=== PATIENT | female | born 1960 | race Caucasian/White ===

== ENCOUNTER 2021-02-13 11:42 | Emergency (ER) | payer OTHER, SELFPAY ==
[2021-02-13] VITALS (22 sets, daily range): BP systolic 142–183; BP diastolic 59–73; PULSE 84–97; RESP 14; TEMP 36.6; O2SAT 97–99
--- NOTE | 2021-02-13 11:53 | ED.GENADUL_ITS ---
Discharge Plan Disposition Patient Disposition: [facility] ([facility] Condition: Improving Discharge Details Clinical Impression: Diabetes, Hyperglycemia Primary Care Provider: Megan Day ED Provider: Pedro Keyes Home Meds and New Rx's Prescriptions: Continued lisinopril 10 MG tablet 10 mg PO DAILY RF: 0 BABY ASPIRIN 81 MG TAB.CHEW 81 mg PO DAILY RF: 0 acetaminophen 500 mg Tablet 1,000 mg PO Q8H PRN PRNRF: 0 enoxaparin 40 mg/0.4 mL Syringe 40 mg subcut BID RF: 0 insulin lispro 100 unit/mL Solution 2 - 5 sliding scale dose subcut QID RF: 0 lidocaine [Lidoderm] 5 % Adhesive Patch,Medicated 1 patch transdermal DAILY RF: 0 polyethylene glycol 3350 [Miralax] 17 gram/dose Powder 17 g PO BID PRN PRNRF: 0 senna-docusate sodium Tablet 2 tab PO BID RF: 0 glucagon 1 mg Kit 1 mg RF: 0 atorvastatin 40 mg Tablet 40 mg PO DAILY RF: 0 insulin glargine 100 unit/mL Solution 8 unit SUBCUT RF: 0 citalopram 20 mg Tablet 20 mg PO DAILY RF: 0 haloperidol 0.5 mg Tablet 0.5 mg PO PRN PRNRF: 0 levothyroxine 50 mcg Tablet 50 mcg PO DAILY RF: 0 lorazepam 0.5 mg Tablet 0.5 mg PO PRN PRNRF: 0 morphine 20 mg/5 mL (4 mg/mL) Solution 20 mg PO PRN PRNRF: 0 pantoprazole 40 mg Tablet,Delayed Release (Dr/Ec) 40 mg PO DAILY RF: 0 prochlorperazine 5 mg Suppository 10 mg NM RF: 0 ondansetron 4 mg Tablet,Disintegrating 4 mg PO PRN PRNRF: 0 metoclopramide HCl 10 mg Tablet,Disintegrating 10 mg PO DAILY RF: 0 Discharge Instructions Instructions: Diabetic Hyperglycemia (ED) Additional Instructions: Your evaluation in the ER included laboratory and urinalysis. Continue Carb counting with meals, sliding scale Lispro. Please followup with Endocrinology as was planned [place] [facility] [place] recommend he check her glucoses with each meal for a minimum of 3 times daily. Observe consistent carbohydrate intake. Resume sliding scale coverage of insulin with Humalog/lispro at mealtimes. In the emergency phone you had laboratory testing, received 1 L of normal saline , and a total of 16 units of regular insulin. Medical Decision Making 60-year-old female brought from rehabilitation facility where she is recovering from left tib-fib fracture repair. She was insulin-dependent diabetes, has been noted to have fluctuating glucoses and today hyperglycemic. Was given 10 units of insulin and transferred to the ER. Her diabetic regimen includes 10 units of Lantus daily and lispro sliding scale. She arrives interactive without complaint. Patient given fluid bolus, laboratories obtained. CBC with white count 3.9, hematocrit 25, platelets 377, chemistries note unremarkable electrolytes, BUN 16, creatinine 1.0, glucose 470. Urinalysis with specific gravity 1.02. Glucosuria present. Patient given 1 L fluid, 10 units of regular insulin, and glucose rechecked, still elevated above 300 and patient given additional 6 units of insulin and glucose corrected to approximately 70. 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 She has poor consistency of diet and this may be contributory as well. We will recommend ongoing use of Lantus with sliding scale and 3 times daily glucose checks. She is stable and improved, appropriate for discharge to rehabilitation. HPI General Mode of arrival: EMS . Date/Time Provider Initiated Documentation: 02/13/21 12:01 . Limitations to Documentation: no limitations . Information obtained by: patient and EMS . History of Present Illness 60 year old F presents to the emergency department with the chief complaint of Elevated glucose at rehabilitation facility, Quality is described as constant, Patient reports no radiation. Patient started experiencing this unknown No relieving factors improve symptom(s), No exacerbating factors reported . Patient notes no other symptoms.. Related Data Home Medications Medication Instructions Recorded Confirmed Baby Aspirin 81 mg PO DAILY tab-cap NS 04/22/14 02/13/21 lisinopril 10 mg PO DAILY tab-cap NS 04/22/14 02/13/21 acetaminophen 1,000 mg PO Q8H PRN PRN 02/13/21 02/13/21 atorvastatin 40 mg PO DAILY 02/13/21 02/13/21 citalopram 20 mg PO DAILY 02/13/21 02/13/21 enoxaparin 40 mg SUBCUT BID 02/13/21 02/13/21 glucagon 1 mg 02/13/21 haloperidol 0.5 mg PO PRN PRN 02/13/21 02/13/21 insulin glargine 8 unit SUBCUT 02/13/21 insulin lispro 2 - 5 sliding scale dose SUBCUT QID 02/13/21 02/13/21 levothyroxine 50 mcg PO DAILY 02/13/21 02/13/21 lidocaine [Lidoderm] 1 patch TRANSDERMAL DAILY 02/13/21 02/13/21 lorazepam 0.5 mg PO PRN PRN 02/13/21 02/13/21 metoclopramide HCl 10 mg PO DAILY 02/13/21 02/13/21 morphine 20 mg PO PRN PRN 02/13/21 02/13/21 ondansetron 4 mg PO PRN PRN 02/13/21 02/13/21 pantoprazole 40 mg PO DAILY 02/13/21 02/13/21 polyethylene glycol 3350 [Miralax] 17 g PO BID PRN PRN 02/13/21 02/13/21 prochlorperazine 10 mg NM 02/13/21 senna-docusate sodium 2 tab PO BID 02/13/21 02/13/21 Allergies Allergy/AdvReac Type Severity Reaction Status Date / Time Sulfa (Sulfonamide Allergy Unverified 02/13/21 11:45 Antibiotics) cyclobenzaprine AdvReac Nausea Unverified 02/13/21 12:21 [From Flexeril] hydralazine AdvReac Dizziness/L Unverified 02/13/21 12:22 ighthead paroxetine [From Paxil] AdvReac Dizziness/L Unverified 02/13/21 12:22 ighthead sertraline AdvReac Nausea Unverified 02/13/21 12:23 sulfamethoxazole AdvReac Headache Unverified 02/13/21 12:20 [From Bactrim] trimethoprim [From Bactrim] AdvReac Headache Unverified 02/13/21 12:20 venlafaxine [From Effexor] AdvReac Headache Unverified 02/13/21 12:20 General Stated Complaint: Diabetes NARAYAN: 4 Review of Systems Narrative: States that she is on insulin at home. No other complaints. Recovering from a left lower leg orthopedic repair. [facility] Medical History (Updated 02/13/21 @ 15:03 by Pedro Keyes MD) Diabetes Social History Smoking/Tobacco Use Status: Never Smoking risk assessment performed?: Yes Alcohol Intake: never Substance use type: does not use Do you feel safe at home: Yes Do you feel safe in your relationship?: Yes Exam Narrative Exam Narrative: GEN: awake, alert, oriented 3. Pleasant, well groomed, interactive. HEAD: Normocephalic, atraumatic EYES: PERRL, EOMI NECK: Full ROM, no CHRIS, no menigismus CHEST/RESP: Nontender, clear to auscultation bilateral, no wheeze/rhonchi/rales CARDIOVASCULAR: RRR, no murmur, rub andre. 2+ Rad pulse bilateral ABDOMEN: Soft, nontender, no mass. +Bowel sounds EXT: Full ROM, no edema, no rash, healing surgical sites proximal and distal left tibia Neuro: Grossly normal neurologic exam, conversant, interactive. Psych: Speech fluent, thoughts congruent, affect flat Course Vital Signs Vital signs: Vital Signs Temperature 36.6 C 02/13/21 11:41 Pulse 87 02/13/21 11:41 Respiratory Rate 14 02/13/21 11:41 Blood Pressure 145/66 H 02/13/21 11:41 Pulse Oximetry 98 02/13/21 11:41 Temperature 36.6 C 02/13/21 11:41 Temperature Source Skin 02/13/21 11:41 Pulse 87 02/13/21 11:41 Respiratory Rate 14 02/13/21 11:41 Respiratory Effort Non-Labored 02/13/21 11:46 Blood Pressure 145/66 H 02/13/21 11:41 Blood Pressure Position Supine 02/13/21 11:41 Pulse Oximetry 98 02/13/21 11:41 Oxygen Delivery Method Room Air 02/13/21 11:41 Oxygen Flow Rate 0 02/13/21 11:41 Pain Level 4 02/13/21 11:41 Comment 02/13/21 11:41
[2021-02-13] MEDS: Normal Saline 1,000 ML 1000 ML IV (12:16)
[2021-02-13 12:17] LABS: Abs Immature Grans 0.02 10^3/uL (0.0-0.06); Absolute Basophil Count 0.02 10^3/uL (0.0-0.2); Absolute Eosinophil Count 0.13 10^3/uL (0.0-0.7); Absolute Neutrophil Count 2.71 10^3/uL (1.2-6.7); Basophils % 0.5; Eosinophils % 3.3; HCT 25.4 % (36.0-46.0); HGB 8.2 g/dL (11.2-15.7); Immature Grans % 0.5; Lymphocytes % 17.6; MCH 28.8 pg (27.0-33.0); MCHC 32.3 % (32.0-36.0); MCV 89.1 fL (80-95); Monocytes % 10.1; Nucleated RBC 0 %; Platelet Count 377 10^3/uL (130-400); RBC 2.85 10^6/uL (3.93-5.22); RDW 13.7 % (11.7-14.6); RDW-SD 44.4 fL; WBC 3.98 10^3/uL (4.4-10.8)
[2021-02-13 12:35] LABS: ALT 14 U/L (14-59); AST 18 U/L (15-37); Albumin 2.7 g/dL (3.4-5.0); Alkaline Phosphatase 207 U/L (46-116); Anion Gap 6.9 mmol/L (3-11); BUN 16 mg/dL (7-18); Bilirubin, Total 0.2 mg/dL (0.2-1.0); CO2 31.1 mmol/L (21.0-32.0); Calcium 8.6 mg/dL (8.5-10.1); Chloride 100 mmol/L (98-107); Estimated GFR 56.18 (mL/min/1.73m2); Glucose 470 mg/dL (74-106); Magnesium 1.8 mg/dL (1.8-2.4); Sodium 138 mmol/L (136-145); Total Protein 6.5 g/dL (6.4-8.2)
--- NOTE | 2021-02-13 13:15 | NUR.NOTE ---
Nursing Note: Daughter Caroline Brunson home [phone] cell [phone]
[2021-02-13] MEDS: Insulin REGULAR-Human 100 UNITS/ML UNIT 10 UNITS IV (13:23)
[2021-02-13 13:44] LABS: Bilirubin Negative (Negative); Blood Trace-lysed (Negative); Clarity Clear (Clear); Glucose 500 mg/dL (Negative); Ketones Negative (Negative); Leukocyte Esterase Negative (Negative); Nitrite Negative (Negative); Urobilinogen 0.2 EU/dL (Up TO 0.2)
[2021-02-13 13:55] LABS: Bacteria Few HPF (Negative); C & S Indicated? No/Sq. Contamination; Casts Negative LPF (Negative); Crystals Negative HPF (Negative); Epithelial Cells Moderate HPF (Negative); Mucus Negative (Negative); RBC Negative HPF (0-2)
[2021-02-13] MEDS: Insulin REGULAR-Human 100 UNITS/ML UNIT 6 UNITS IV (14:20)
== END 2021-02-13 15:38 | disposition intermediate care facility (04) ==
PROVIDERS: Emergency Provider Emergency Medicine; PCP Family Medicine
DX: E11.65 Type 2 diabetes mellitus with hyperglycemia (principal); Z79.4 Long term (current) use of insulin
CPT/HCPCS: 36416; 80053; 82962; 96361; 96374; 96375; 99284; 81003; 81015; 83735; 85025; 99283